=== PATIENT | male | born 1990 | race African-American/Black ===

== ENCOUNTER 2025-03-21 17:14 | Inpatient (IN) | payer OTHER ==
[2025-03-21 17:36] LABS: Absolute Lymphocytes (CBC) 4.9 K/uL (0.7-4.9); Hematocrit 41.7 % (39.6-49.0); Hemoglobin 14.2 g/dL (13.6-17.9); MCH 29.0 pg (27.0-35.0); MCHC 34.1 g/dL (32.0-36.0); MCV 85.2 fL (80-100); MPV 7.0 fL (7.6-11.3); Nucleated RBC Absolute Count 0.0 (0-0); Nucleated Red Blood Cells % 0.2 % (0-0); RBC Red Blood Cell Count 4.90 M/uL (4.33-5.43); White Blood Count 8.30 thou/uL (4.3-10.9)
[2025-03-21 17:49] LABS: Anion Gap 7.5 mEq/L (5.0-15.0); BUN Blood Urea Nitrogen 16.0 mg/dL (7-18); Glucose Level 116.0 mg/dL (74-106); Potassium 3.5 mEq/L (3.5-5.1)
[2025-03-21] MEDS ORDERED: MORPHINE 4 MG/ML SYR ONE (17:52)
[2025-03-21] MEDS ORDERED: ONDANSETRON 4 MG/2 ML VIAL ONE (17:52)
[2025-03-21] MEDS ORDERED: NA CHLORIDE 0.9% 1,000 ML ONE (17:53)
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
[2025-03-21] MEDS ORDERED: ONDANSETRON 4 MG/2 ML VIAL IV PRN (18:56)
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
[2025-03-21 20:36] VITALS: BMI 20.7
[2025-03-21] MEDS: MORPHINE 4 MG/ML SYR IV PRN (20:59)
[2025-03-21] MEDS: NA CHLORIDE 0.9% 1,000 ML IV SCH (20:59)
[2025-03-21] MEDS: SERTRALINE HCL 50 MG TAB ONE ×2 (23:52→23:57)
[2025-03-21] MEDS: SERTRALINE HCL 100 MG TAB ONE (23:52)
[2025-03-21] MEDS: RISPERIDONE 1 MG TABLET ONE (23:55)
[2025-03-21] MEDS: SERTRALINE HCL 50 MG TAB PO SCH (23:59)
[2025-03-21] MEDS: RISPERIDONE 1 MG TABLET PO SCH (23:59)
[2025-03-22 05:47] LABS: Absolute Lymphocytes (CBC) 1.5 K/uL (0.7-4.9); Hematocrit 34.6 % (39.6-49.0); Hemoglobin 12.0 g/dL (13.6-17.9); MCH 29.4 pg (27.0-35.0); MCHC 34.7 g/dL (32.0-36.0); MCV 84.5 fL (80-100); MPV 7.3 fL (7.6-11.3); Nucleated RBC Absolute Count 0.0 (0-0); Nucleated Red Blood Cells % 0.1 % (0-0); RBC Red Blood Cell Count 4.10 M/uL (4.33-5.43); White Blood Count 10.10 thou/uL (4.3-10.9)
[2025-03-22 06:04] LABS: ALT/SGPT 30.0 U/L (16-61); AST/SGOT 27.0 U/L (15-37); Albumin 2.9 g/dL (3.4-5.0); Albumin/Globulin Ratio 0.8 (1.1-1.8); Alkaline Phosphatase 85.0 U/L (45-117); Anion Gap 6.6 mEq/L (5.0-15.0); BUN Blood Urea Nitrogen 12.0 mg/dL (7-18); Globulin 3.5 g/dL (2.3-3.5); Glucose Level 146.0 mg/dL (74-106); Magnesium 1.8 mg/dL (1.6-2.4); Potassium 3.6 mEq/L (3.5-5.1)
--- NOTE | 2025-03-22 07:29 | RAD REPORT ---
Procedure: Chest Single View HISTORY: Pneumothorax COMPARISON: March 21, 2025 FINDINGS: Minimal left apical pneumothorax. Left clavicular and left rib fractures again demonstrated No pulmonary contusion. No significant pleural effusion noted. The heart is normal size. IMPRESSION: Minimal left apical pneumothorax
[2025-03-22] MEDS: POTASSIUM CL SA 10 MEQ TAB PO ONE (08:56)
[2025-03-22] MEDS: ENOXAPARIN 40 MG/0.4 ML SQ SCH (08:57)
[2025-03-22] MEDS: MAGNESIUM SULFATE 1 gm IVPB 1 GM/100 ML BAG IV ONE (08:57)
[2025-03-22] MEDS ORDERED: METHYLPHENIDATE HCL 36 MG PO SCH (09:00)
[2025-03-22] MEDS ORDERED: METHYLPHENIDATE HCL 54 MG PO SCH (09:00)
[2025-03-22] MEDS: METHYLPHENIDATE 36 MG PO SCH (09:33)
[2025-03-22] MEDS: METHYLPHENIDATE 54 MG PO SCH (09:33)
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
[2025-03-22] MEDS: Oxycodone HCl/Acetaminophen 5/325 MG TAB PO PRN (22:48)
[2025-03-23 07:31] LABS: Absolute Lymphocytes (CBC) 1.4 K/uL (0.7-4.9); Hematocrit 36.3 % (39.6-49.0); Hemoglobin 12.5 g/dL (13.6-17.9); MCH 29.6 pg (27.0-35.0); MCHC 34.4 g/dL (32.0-36.0); MCV 85.9 fL (80-100); MPV 7.2 fL (7.6-11.3); Nucleated RBC Absolute Count 0.0 (0-0); Nucleated Red Blood Cells % 0.0 % (0-0); RBC Red Blood Cell Count 4.22 M/uL (4.33-5.43); White Blood Count 9.70 thou/uL (4.3-10.9)
--- NOTE | 2025-03-23 07:32 | RAD REPORT ---
EXAM: Chest Single View HISTORY: 35 years Male pneumothorax COMPARISON: 03/22/2025 FINDINGS: LUNGS/PLEURA: The lungs are clear. No pleural effusions or pneumothorax. No pulmonary edema. CARDIAC/MEDIASTINUM: The cardiac silhouette is within normal limits. UPPER ABDOMEN: No significant abnormality. BONES: Left clavicle and rib fractures again noted. LINES/TUBES/OTHER: N/A IMPRESSION: No evidence of acute cardiopulmonary disease. Specifically, no appreciable pneumothorax.
[2025-03-23 07:54] LABS: ALT/SGPT 29.0 U/L (16-61); AST/SGOT 22.0 U/L (15-37); Albumin 3.3 g/dL (3.4-5.0); Albumin/Globulin Ratio 0.9 (1.1-1.8); Alkaline Phosphatase 90.0 U/L (45-117); Anion Gap 8.0 mEq/L (5.0-15.0); BUN Blood Urea Nitrogen 13.0 mg/dL (7-18); Globulin 3.7 g/dL (2.3-3.5); Glucose Level 93.0 mg/dL (74-106); Magnesium 2.2 mg/dL (1.6-2.4); Potassium 4.0 mEq/L (3.5-5.1)
[2025-03-23] MEDS: ACETAMINOPHEN 325 MG TABLET PO PRN (11:55)
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
[2025-03-25 08:56] VITALS: O2SAT 96
[2025-03-25 12:54] VITALS: BP 131/75; TEMP 98.7
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
== END 2025-03-25 15:05 | disposition home or self-care (01) | DRG 200 ==
LOC: ER 17:14 → UNDOADMIN 18:48 → ERHOLD 18:48 → 3RD-ICU 19:29 → 2ND 03-22 14:19
PROVIDERS: ADMIT Internal Medicine; ATTEND Hospitalist
DX: S27.0XXA Traumatic pneumothorax, initial encounter (principal); F05 Delirium due to known physiological condition; S22.42XA Multiple fractures of ribs, left side, initial encounter for closed fracture; M54.9 Dorsalgia, unspecified; F41.9 Anxiety disorder, unspecified; F31.9 Bipolar disorder, unspecified; E78.00 Pure hypercholesterolemia, unspecified; S29.9XXA Unspecified injury of thorax, initial encounter; S42.002A Fracture of unspecified part of left clavicle, initial encounter for closed fracture; R58 Hemorrhage, not elsewhere classified; Z79.899 Other long term (current) drug therapy; V29.99XA Rider (driver) (passenger) of other motorcycle injured in unspecified traffic accident, initial encounter; Y93.9 Activity, unspecified; Y92.9 Unspecified place or not applicable; Y99.9 Unspecified external cause status
CPT/HCPCS: 36415; 70450; 71045; 71260; 72125; 74177; 80048; 80053; 83735; 84100; 85025; 86850; 86900; 86901; 94010; 96361; 96374; 96375; 97116; 97161; 97165; 97530; 99285; J1650; J2405; J3475; J7030; Q9967

== ENCOUNTER 2025-04-06 22:35 | Emergency (ER) | payer OTHER ==
[2025-04-06 23:51] LABS: Absolute Lymphocytes (CBC) 1.8 K/uL (0.7-4.9); Hematocrit 34.8 % (39.6-49.0); Hemoglobin 12.0 g/dL (13.6-17.9); MCH 29.1 pg (27.0-35.0); MCHC 34.5 g/dL (32.0-36.0); MCV 84.4 fL (80-100); MPV 6.9 fL (7.6-11.3); Nucleated RBC Absolute Count 0.0 (0-0); Nucleated Red Blood Cells % 0.1 % (0-0); RBC Red Blood Cell Count 4.13 M/uL (4.33-5.43); White Blood Count 11.20 thou/uL (4.3-10.9)
[2025-04-06 23:54] LABS: PT Prothrombin Time 16.2 SECONDS (10-13.0); PTT, Activated Partial Thromb 34.2 SECONDS (27.2-37.4); Protime INR 1.45
[2025-04-07 00:02] LABS: Anion Gap 9.6 mEq/L (5.0-15.0); BUN Blood Urea Nitrogen 17 mg/dL (7-18); Glucose Level 108 mg/dL (74-106); Magnesium 2.1 mg/dL (1.6-2.4); NT PRO-BNP 13 pg/mL (<125); Potassium 3.6 mEq/L (3.5-5.1)
[2025-04-07 00:05] LABS: Troponin High Sensitivity < 3.0 pg/mL (<58.9)
--- NOTE | 2025-04-07 01:54 | RAD REPORT ---
EXAM DESCRIPTION: XR CHEST 2 VIEWS 04/07/2025 12:08 AM CDT CLINICAL HISTORY: 35 years, Male, Chest pain, dyspnea. COMPARISON: XR Chest 03/23/2025. FINDINGS: 2 views of the chest (PA and lateral projections) were obtained. Prior films were compared. There i s slight decreased lung volume. The lateral film demonstrates the presence of opportunity within the [id number] limiting diagnostic value. Mediastinum: The cardiomediastinal silhouette appears normal in size and shape. Lungs: No areas of consolidations or masses are identified. There is questionable compressive atelect atic changes right lung base. Heart: The heart is normal in size. Thoracic aorta: The thoracic aorta demonstrate to be normal. Pulmonary vasculature: The pulmonary vasculature is normal in distribution. Pleura: Mild elevation of the right hemidiaphragm. Compressive atelectatic changes right lung base. Osseous structures: The bony structures demonstrate to be within normal limits. Other: None. IMPRESSION: Mild elevation of the right hemidiaphragm with compressive atelectatic changes right lung base. Electronically signed by: Yuan Maddox MD 04/07/2025 12:24 AM CDT RP Due to temporary technical issues with the PACS/[employer] reporting system, reports are being prachi d by the in-house radiologist without review as a courtesy to ensure prompt reporting the interpreting radiologist is fully responsible for the content of the report. Transcribed Date/Time: 04/07/2025 1:54 AM
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
[2025-04-07 08:50] VITALS: TEMP 98.6
[2025-04-07 08:54] VITALS: BP 122/76; O2SAT 98
== END 2025-04-07 03:20 | disposition home or self-care (01) ==
LOC: ER 22:35
DX: J18.9 Pneumonia, unspecified organism (principal)
CPT/HCPCS: 36415; 71046; 71250; 80048; 83735; 83880; 84484; 85025; 85610; 85730; 93005; 99284